=== PATIENT | female | born 1990 | race African-American/Black ===

== ENCOUNTER 2020-03-31 16:45 | Emergency (ER) | payer SELFPAY ==
[2020-03-31 16:52] VITALS: BP 112/74; PULSE 106
[2020-03-31] MEDS ORDERED: predniSONE 20 MG Tab PO ONE (17:04)
--- NOTE | 2020-03-31 17:09 | EDM.PDOC ---
ED HPI GENERAL MEDICAL PROBLEM - General Chief Complaint: Skin Complaint Stated Complaint: RASH ON BODY Time Seen by Provider: 03/31/20 16:51 Source of Information: Reports: Patient History Limitations: Reports: No Limitations - History of Present Illness INITIAL COMMENTS - FREE TEXT/NARRATIVE: Patient is a 29-year-old female who presents to the emergency department with a one-week history of intermittent pruritus and generalized rash throughout her body. She states about 1 week ago she was at a pool libertarian. States that the pool looked "a little dirty ". She fell in the pool. The next day she developed generalized itching throughout her body. She has areas of dry, rough skin to her upper arms as well as a small amount scattered throughout her back. She states that she is itchy throughout her body. She has used kxcv-wab-aboojmo Tylenol and Benadryl with little relief. She denies any open areas or drainage. She has no known allergies. She has not changed soaps or laundry detergents recently. She states that her upper arms are painful when she takes a hot shower, but otherwise the area is itchy but not painful. - Related Data Allergies Allergy/AdvReac Type Severity Reaction Status Date / Time No Known Allergies Allergy Verified 11/19/15 02:08 Home Meds: Home Meds Betamethasone Valerate 45 gm TP BID #1 tube 11/19/15 [Rx] Ketoconazole [Nizoral 2% Crm] 30 gm TOP BID 11/19/15 [History] predniSONE [Prednisone] 20 mg PO ASDIRECTED #15 tablet 03/31/20 [Rx] Past Medical History - Past Health History Medical/Surgical History: Denies Medical/Surgical History Social & Family History - Tobacco Use Smoking Status *Q: Never Smoker Second Hand Smoke Exposure: No - Caffeine Use Caffeine Use: Reports: None - Recreational Drug Use Recreational Drug Use: No ED ROS GENERAL - Review of Systems Review Of Systems: See Below Constitutional: Reports: No Symptoms. Denies: Fever, Chills, Weakness HEENT: Reports: No Symptoms Respiratory: Reports: No Symptoms Cardiovascular: Reports: No Symptoms Endocrine: Reports: No Symptoms GI/Abdominal: Reports: No Symptoms : Reports: No Symptoms Musculoskeletal: Reports: No Symptoms Skin: Reports: Rash Neurological: Reports: No Symptoms Psychiatric: Reports: No Symptoms Hematologic/Lymphatic: Reports: No Symptoms Immunologic: Reports: No Symptoms ED EXAM, SKIN/RASH Exam: See Below Exam Limited By: No Limitations General Appearance: Alert, WD/WN, No Apparent Distress Respiratory/Chest: No Respiratory Distress, Lungs Clear, Normal Breath Sounds, No Accessory Muscle Use, Chest Non-Tender Cardiovascular: Normal Peripheral Pulses, Regular Rate, Rhythm, No Edema, No Gallop, No JVD, No Murmur, No Rub Skin: Rash, Other (dry, thickened skin to the bilateral upper arms as well as the back. No redness or purlence noted.) Course - Vital Signs Last Recorded V/S: Last Vital Signs Temp 98.1 F 03/31/20 16:51 Pulse 106 H 03/31/20 16:51 Resp 16 03/31/20 16:51 BP 112/74 03/31/20 16:51 Pulse Ox 97 03/31/20 16:51 - Orders/Labs/Meds Orders: Active Orders 24 hr Category Date Time Status predniSONE Med 03/31/20 17:04 Once 20 mg PO ONETIME ONE - Re-Assessments/Exams Free Text/Narrative Re-Assessment/Exam: On exam, pt appears to have a contact dermatitis to her upper arms and throughout her back, possibly related to chlorine exposure. She has not changed soaps or detergents recently. She c/o generalized itching. There is no redness or open areas noted. I will started her on a coarse of prednisone. Disc ussed the she should avoid hot showers and use an over the counter emolient such as CeraVe until symptoms improve. If she does not see improvement in symptoms by early next week, recommend f/u in clinic. Discharge instructions as documented. Departure - Departure Time of Disposition: 17:15 Disposition: Home, Self-Care 01 Condition: Good Clinical Impression: Contact dermatitis Qualifiers: Contact dermatitis type: allergic Contact dermatitis trigger: other chemical product Qualified Code(s): L23.5 - Allergic contact dermatitis due to other chemical products - Discharge Information *PRESCRIPTION DRUG MONITORING PROGRAM REVIEWED*: No *COPY OF PRESCRIPTION DRUG MONITORING REPORT IN PATIENT NGA: No Prescriptions: predniSONE [Prednisone] 20 mg PO ASDIRECTED #15 tablet Instructions: Contact Dermatitis, [id number] Referrals: PCP,None [Primary Care Provider] - Additional Instructions: You were seen in the emergency department today for generalized itching and rash throughout your body. On exam, you appear to have a contact dermatitis which may be related to chlorine exposure, however other allergens cannot be excluded. There are no signs of infection. You have been started on a course of predni sone. This is a steroid which will reduce the inflammation and itching. You may continued to use Benadryl as needed for itching, as well. Recommend that you avoid hot showers as this will likely worsen your symptoms. Avoid harsh soaps or fragrances. Recommend that you purchase an kztm-jkf-pxhaqvz hypoallergenic emollient such as CeraVe and apply to the dry, itchy areas. If you are not seeing significant provement by early next week, recommend that you follow-up in the clinic for recheck. Return to the ER for any worsening symptoms. Sepsis Event Note (ED) - Evaluation Sepsis Screening Result: No Definite Risk - Focused Exam Vital Signs: Vital Signs Temp Pulse Resp BP Pulse Ox 03/31/20 16:51 98.1 F 106 H 16 112/74 97 - My Orders Last 24 Hours: My Active Orders 03/31/20 17:04 predniSONE 20 mg PO ONETIME ONE - Assessment/Plan Last 24 Hours: My Active Orders 03/31/20 17:04 predniSONE 20 mg PO ONETIME ONE
== END 2020-03-31 17:25 | disposition home or self-care (01) ==
LOC: JD.ED 16:45
DX: L23.5 Allergic contact dermatitis due to other chemical products (principal)
CPT/HCPCS: 99282; J7512

== ENCOUNTER 2020-04-10 19:04 | Emergency (ER) | payer SELFPAY ==
[2020-04-10] MEDS ORDERED: Levofloxacin 500 MG Tab PO ONE (21:52)
--- NOTE | 2020-04-10 22:00 | EDM.PDOC ---
ED HPI GENERAL MEDICAL PROBLEM - General Chief Complaint: Skin Complaint Stated Complaint: BODY PAIN Time Seen by Provider: 04/10/20 21:18 Source of Information: Reports: Patient, RN Notes Reviewed History Limitations: Reports: No Limitations - History of Present Illness INITIAL COMMENTS - FREE TEXT/NARRATIVE: Patient is a 29-year-old female who presents to the ED for the evaluation of her generalized pruritus. Patient was seen in this ER last week for her itching, she was given a steroid and a topical cream, but states that her itching has not improved. She states that she does not like the systemic effects of the steroids as well. Patient recounts that she was at a pool republican, and went into the water, and she thought that the pool water looked a little murky. She is wondering if she does not have a bacterial infection on her skin causing the pruritus to linger. She has tried jigg-xsc-vjvuyql Benadryl as well, this is not provided much relief. Patient's not having any pain, denies any other sick- like symptoms, fever/chills, cough/shortness of breath nausea/vomiting/diarrhea. She does recount an area between her thighs, that is also rough and itchy. She states that it does seem to worsen when she gets hot, or exercises. She states that she has been using peroxide baths to help get her to stop itching. - Related Data Allergies Allergy/AdvReac Type Severity Reaction Status Date / Time No Known Allergies Allergy Verified 04/10/20 19:59 Home Meds: Home Meds Betamethasone Valerate 45 gm TP BID #1 tube 11/19/15 [Rx] Ketoconazole [Nizoral 2% Crm] 30 gm TOP BID 11/19/15 [History] predniSONE [Prednisone] 20 mg PO ASDIRECTED #15 tablet 03/31/20 [Rx] levoFLOXacin [Levofloxacin] 500 mg PO DAILY #6 tablet 04/10/20 [Rx] Past Medical History - Past Health History Medical/Surgical History: Denies Medical/Surgical History Dermatologic History: Reports: Urticaria Social & Family History - Tobacco Use Smoking Status *Q: Never Smoker - Caffeine Use Caffeine Use: Reports: None - Recreational Drug Use Recreational Drug Use: No ED ROS GENERAL - Review of Systems Review Of Systems: Comprehensive ROS is negative, except as noted in HPI. ED EXAM, SKIN/RASH Exam: See Below Exam Limited By: No Limitations General Appearance: Alert, WD/WN, No Apparent Distress Respiratory/Chest: No Respiratory Distress, Lungs Clear, Normal Breath Sounds, No Accessory Muscle Use, Chest Non-Tender Cardiovascular: Normal Peripheral Pulses, Regular Rate, Rhythm, No Murmur Extremities: Normal Inspection, Normal Capillary Refill Neurological: Alert, Oriented, Normal Cognition, No Motor/Sensory Deficits Psychiatric: Normal Affect, Normal Mood Skin: Warm, Dry, Intact, Normal Color, Excoriations (Multiple excoriation elias throughout her entire body surface. The area on her inner thighs, does appear to be raised, and is very itchy.) Course - Vital Signs Last Recorded V/S: Last Vital Signs Temp 99 F 04/10/20 19:57 Pulse 76 04/10/20 19:57 Resp 14 04/10/20 19:57 BP 132/77 04/10/20 19:57 Pulse Ox 100 04/10/20 19:57 - Orders/Labs/Meds Meds: Medications Discontinued Medications Generic Name Dose Route Start Last Admin Trade Name Trina PRN Reason Stop Dose Admin Levofloxacin 500 mg 04/10/20 21:52 Levaquin PO 04/10/20 21:53 ONETIME ONE - Re-Assessments/Exams Free Text/Narrative Re-Assessment/Exam: 04/10/20 21:56 Patient presents to the ED for the evaluation of a general pruritus. I did state that she could try jkks-oks-ohenefy Benadryl for lingering symptoms, and we could try Vistaril with her for pruritus, she does not want any of these sort of medications, and requesting an antibiotic, she thinks there is a bacterial infection on her skin. Although there is low likelihood, she could have had a hot tub folliculitis when she presented last week, as she fell into dirty water. Will treat with levofloxacin 500 mg once daily for a few days and see if this does not help. I will urge that she is to follow-up in clinic for further management as the ER is not an appropriate place to be coming for return exams. Departure - Departure Time of Disposition: 21:58 Disposition: Home, Self-Care 01 Condition: Good Clinical Impression: Aquagenic pruritus - Discharge Information *PRESCRIPTION DRUG MONITORING PROGRAM REVIEWED*: No *COPY OF PRESCRIPTION DRUG MONITORING REPORT IN PATIENT NGA: No Prescriptions: levoFLOXacin [Levofloxacin] 500 mg PO DAILY #6 tablet Instructions: Swimmer's Itch Referrals: PCP,None [Primary Care Provider] - Additional Instructions: You were evaluated in the ER today regarding your all over itchiness. You could have been suffering from hot tub folliculitis initially. We have started levofloxacin, 500 mg daily for the next few days to see if this does not help resolve some of the symptoms. Please continue to take the other medications as previously prescribed, and try to use a moisturizing skin lotion like CeraVe to help provide further moisturization of the skin. You may use nowq-znd-nocrhvl medications like Benadryl, Claritin, or other histamine blockers "allergy medications" to see if this also helps relieve some of the itching that you are experiencing. Strongly recommend you set up care with a primary care physician of choice, in our clinic, please call [phone] for further evaluation and management of the symptoms. The ER is not meant for primary care management. And you would benefit from setting up with someone that can watch her health on a general basis. Please return to the ER if your symptoms should change or worsen. Sepsis Event Note (ED) - Evaluation Sepsis Screening Result: No Definite Risk - Focused Exam Vital Signs: Vital Signs Temp Pulse Resp BP Pulse Ox 04/10/20 19:57 99 F 76 14 132/77 100
[2020-04-10 22:21] VITALS: BP 122/77; PULSE 75
== END 2020-04-10 22:15 | disposition home or self-care (01) ==
LOC: JD.ED 19:04
DX: L29.8 Other pruritus (principal)
CPT/HCPCS: 99282; A9270; 99283